=== PATIENT | female | born 1985 | race Asian ===

== ENCOUNTER 2017-03-31 21:11 | Observation (INO) | payer OTHER, MEDICAID ==
[2017-03-31 21:47] LABS: APPEARANCE,URINE CLEAR; BILIRUBIN,URINE NEGATIVE (NEGATIVE); GLUCOSE, URINE NEGATIVE (NEGATIVE); KETONES,URINE 80 mg/dL (NEGATIVE); LEUKOCYTE ESTERASE,URINE TRACE (NEGATIVE); NITRITE,URINE NEGATIVE (NEGATIVE); PROTEIN,URINE NEGATIVE (NEGATIVE); URINE SPECIFIC GRAVITY 1.009; UROBILINOGEN,URINE NEGATIVE mg/dL (<2.0)
[2017-03-31 22:00] LABS: URINE BARBITURATES SCREEN NEGATIVE; URINE METHADONE SCREEN NEGATIVE; URINE OPIATES LOW NEGATIVE; URINE PHENCYCLIDINE SCREEN NEGATIVE
[2017-03-31] MEDS ORDERED: TERBUTALINE SULFATE INJ/PF 1 MG/1 ML SDV SUBCUT ONE (23:20)
[2017-03-31] MEDS ORDERED: TERBUTALINE SULFATE INJ/PF 1 MG/1 ML SDV ONE (23:26)
[2017-03-31] MEDS: RINGERS SOLUTION,LACTATED 1,000 ML IV PRN (23:53)
--- NOTE | 2017-04-01 00:35 | RADIOLOGY REPORT (SQ) ---
EXAM DESCRIPTION: U/S OB LIMITED COMPLETED DATE/TIME: 03/31/2017 10:50 pm REASON FOR STUDY: Cervical lngth pres to R/O labor COMPARISON: None. TECHNIQUE: Limited transvaginal and transabdominal grayscale ultrasound for evaluation of specific r equested obstetrical parameters. LIMITATIONS: None. FINDINGS: CERVICAL LENGTH: 3.3 cm Closed. FHR: 136 beats per minute. PRESENTATION: Cephalic. OTHER: No other significant findings. IMPRESSION: LIMITED OBSTETRICAL ULTRASOUND WITH MEASURED PARAMETERS DELINEATED ABOVE. Trimester of : Third trimester - 28 weeks to delivery. TECHNICAL DOCUMENTATION: JOB ID: [id number] [employer]- All Rights Reserved
[2017-04-01] MEDS: RINGERS SOLUTION,LACTATED 1,000 ML IV PRN (01:16)
--- NOTE | 2017-04-01 06:45 | L&D Progress Notes ---
PROGRESS NOTES Datetime Report Generated by CPN: 04/01/2017 06:45 PROGRESS NOTE Impression Other: ctx Procedures: Sterile Vag Exam Plan: Continue Present Management Informed Consent Obtained: Vaginal Delivery; Risks, Benefits and Alternatives Discussed Vital Signs : Reviewed Comment: Pt being observed for ctx. Normal cervical length. Cvx ft to 1/50/-2 at 0641. fFN negative. However pt given 4x dose of terb by RN at approx midnight. Ctx decreased for a time. Now ctx q 4 minutes (were every one to 2). Norbert continue to monitor and if quiet down and non further cervical change then discharge to home. VAGINAL EXAM Dilatation: ft Effacement: 50 Station: -2 Contractions: q2 MEMBRANES Membranes: Intact FETUS A FHR - Baseline: 125 Monitoring: External US Variability: Moderate 6-25bpm Accelerations: 10X10 Decelerations: None FHR Category: Category II Presentation: Vertex SIGNATURE SIGNATURE: [id number] Signature: with User ID: [email or web address]
--- NOTE | 2017-04-12 10:45 | Admission Physical ---
Datetime Report Generated by CPN: 04/12/2017 10:44 CURRENT ADMISSION Chief Complaint: Uterine Contractions Indication for Induction: Not Applicable Admit Plan: Observation/Evaluation ALLERGIES Medication Allergies: No Medication Allergies: No Known Allergies (03/31/2017) Medication Allergies: No Known Allergies (10/09/2015) Latex: No Latex Allergies Food Allergies: N/A Environmental Allergies: N/A OBSTETRICAL HISTORY EDC: 05/28/2017 00:00 : 3 Para: 2 Term: 2 : 0 SAB: 0 IAB: 0 Livin Gestational Diabetes: Yes Rh Sensitization: No Incompetent Cervix: No BLANCHE: No Infertility: No ART Treatment: No Uterine Anomaly: No IUGR: No Hx Previous C/S: No Macrosomia: No Hx Loss/Stillborn: No PIH: No Hx : No Placenta Previa/Abruption: No Depression/PP Depression: No PTL/PROM: No Post Hemorrhage: No Current Procedures: Ultrasound Obstetrical History Comments: G1 2009, , Boy at 38 weeks, partially developed arms G2 - 2013, , Girl at 36 weeks G3 - Current SEE RECORDS Alcohol: No Marijuana : No Cocaine: No Other Illicit Drugs: No Cigarettes: Never Smoker. [id number] MEDICAL HISTORY Diabetes: Yes Diabetes Type: Gestational Diabetes Blood Transfusion: No Pulmonary Disease (Asthma, TB): No Breast Disease: No Hypertension: No Utility Operator Surgery: No Heart Disease: No Hosp/Surgery: No Autoimmune Disorder: No Anesthetic Complications: No Kidney Disease: Yes Abnormal Pap Smear: Yes Neuro/Epilepsy: No Psychiatric Disorders: No Other Medical Diseases: No Hepatitis/Liver Disease: No Significant Family History: No Varicosities/Phlebitis: No Trauma/Violence : No Thyroid Dysfunction: No Medical History Comments: UTI, abnormal pap INFECTIOUS HISTORY Gonorrhea: No Genital Herpes: No Chlamydia: No Tuberculosis: No Syphilis: No Hepatitis: No HIV/AIDS Exposure: No Rash or Viral Illness: No HPV: No PHYSICAL EXAM General: Normal HEENT: Normal Neurologic: Normal Thyroid: Normal Heart: Normal Lungs: Normal Breast: Deferred Back: Normal Abdomen: Normal Genitourinary Exam: Normal Extremities: Normal DTRs: Normal Pelvic Type: Adequate Vital Signs: Reviewed VAGINAL EXAM Dilatation: ft Effacement: 50 Station: -2 Contraction Comments: q2 MEMBRANES Membranes: Intact FETUS A Monitoring: External US FHR- Baseline: 125 Variability: Moderate 6-25bpm Accelerations: 15X15 Decelerations: None FHR Category: Category I Presentation: Vertex Admit Comment: 32yo at 31+6ega presents for uterine ctx at home. She has had 2 term deliveries in the past. SHe is [place] of [facility] and HTLV has not been drawn yet - drawn on admission. She was nallely q 2 minutes despite positioning. Cervical length obtained and greater than 3cm perpreliminary report. However, pt still nallely despite positioning and IVF. Terb ordered and RN accidentally administered 1mg of Terb SQ instead of 0.25mg. No maternal or tachy noted at this point but due to med error will prolonged monitor pt. c/b newly dx A1GDM - Accucheck 121 on admission. fFN still pending at admission - finally returned as negative. Pt still feeling ctx but now after terb ctx q 6 minutes. No BMZ due to negative fFN and long cervix. Pt first child born in [facility] - no arms due to Amniotic Band Syndrome. 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 Will observe patient due to med error with too much terb given and pt ctx q 2 minutes prior to terb. PLANS FOR LABOR AND DELIVERY Labor and Delivery: None Pain Management: Natural Feeding Preference: Both Benefit of Breast Feed Discussed: Yes Circumcision: Yes INFORMED CONSENT Informed Consent Obtained: Vaginal Delivery; Risks, Benefits and Alternatives Discussed Signature: with User ID: [email or web address]
== END 2017-04-01 12:59 | disposition home or self-care (01) ==
LOC: LC 21:11 → LR 04-01 00:06
PROVIDERS: ADMIT Student in an Organized Health Care Education/Training Program; ATTEND Student in an Organized Health Care Education/Training Program
PROC: 4A0HXCZ Measurement of Products of Conception, Cardiac Rate, External Approach (ICD-10-PCS; principal; 2017-04-01)
DX: O60.03 Preterm labor without delivery, third trimester (principal); O9A.213 Injury, poisoning and certain other consequences of external causes complicating pregnancy, third trimester; T44.5X1A Poisoning by predominantly beta-adrenoreceptor agonists, accidental (unintentional), initial encounter; Y92.239 Unspecified place in hospital as the place of occurrence of the external cause; O24.419 Gestational diabetes mellitus in pregnancy, unspecified control; Z3A.31 31 weeks gestation of pregnancy; Z87.898 Personal history of other specified conditions
CPT/HCPCS: 59025; 94760; 36415; 82962; 81001; 80307; 86790; 82731; 76815; G0378; G0379; J3105

== ENCOUNTER 2017-04-14 15:02 | Outpatient (CLI) | payer OTHER, MEDICAID ==
[2017-04-14 15:53] LABS: APPEARANCE,URINE SLIGHTLY-CLOUDY; BILIRUBIN,URINE NEGATIVE (NEGATIVE); GLUCOSE, URINE NEGATIVE (NEGATIVE); KETONES,URINE NEGATIVE (NEGATIVE); LEUKOCYTE ESTERASE,URINE LARGE (NEGATIVE); NITRITE,URINE NEGATIVE (NEGATIVE); PROTEIN,URINE NEGATIVE (NEGATIVE); URINE SPECIFIC GRAVITY 1.006; UROBILINOGEN,URINE NEGATIVE mg/dL (<2.0)
--- NOTE | 2017-04-14 16:04 | Non Stress Test Report ---
Non Stress Test Datetime Report Generated by CPN: 04/14/2017 16:04 DEMOGRAPHIC EGA NST: 33.5 EGA NST: 31.6 INDICATION Indication for Study: Diabetes Mellitus; Ordered by Provider Indication for Study: Ordered by Provider VITAL SIGNS Temperature - NST: 99.0 RESP - NST: 16 MONITORING Monitor Explained: Monitor Explained; Test Explained; Patient Verbalized Understanding Monitor Explained: Monitor Explained; Test Explained; Patient Verbalized Understanding Time on Monitor: 04/14/2017 15:21 Time on Monitor: 04/01/2017 11:37 Time off Monitor: 04/14/2017 15:45 Time off Monitor: 04/01/2017 12:00 NST Duration: 24 NST Duration: 23 NST INTERVENTIONS NST Interventions: PO Hydration NST Interventions: IV Fluids Physician Notified NST: Sparks BABY A: [id number] BABY A Movement : Present Movement : Present Contraction Frequency : UTD Contraction Frequency : rare FHR Baseline : 150 FHR Baseline : 135 Accelerations : 15X15 Accelerations : 15X15 Decelerations : None Decelerations : None Variability : Moderate 6-25bpm Variability : Moderate 6-25bpm NST Review: Meets Criteria for Reactive NST NST Review: Meets Criteria for Reactive NST NST Review and Verified By : GUSTAVO VallecilloT Results: Reactive NST Results: Reactive NST REPORT Report Trigger: Send Report
[2017-04-14 16:11] LABS: URINE BARBITURATES SCREEN NEGATIVE; URINE METHADONE SCREEN NEGATIVE; URINE OPIATES LOW NEGATIVE; URINE PHENCYCLIDINE SCREEN NEGATIVE
== END 2017-04-14 15:50 | disposition home or self-care (01) ==
LOC: LC 15:02
PROVIDERS: ATTEND Obstetrics & Gynecology
PROC: 4A1HXCZ Monitoring of Products of Conception, Cardiac Rate, External Approach (ICD-10-PCS; principal; 2017-04-14)
DX: O24.419 Gestational diabetes mellitus in pregnancy, unspecified control (principal); Z3A.33 33 weeks gestation of pregnancy
CPT/HCPCS: 59025; 80307; 81001

== ENCOUNTER 2017-05-06 11:13 | Outpatient (CLI) | payer OTHER, MEDICAID | END 2017-05-06 12:00 | disposition home or self-care (01) | LOC: LC 11:13 | PROVIDERS: ATTEND Student in an Organized Health Care Education/Training Program | PROC: 4A1HXCZ Monitoring of Products of Conception, Cardiac Rate, External Approach (ICD-10-PCS; principal; 2017-05-06) | DX: O24.419 Gestational diabetes mellitus in pregnancy, unspecified control (principal); Z3A.36 36 weeks gestation of pregnancy | CPT/HCPCS: 59025 ==

== ENCOUNTER 2017-05-18 06:40 | Inpatient (IN) | payer OTHER, MEDICAID ==
[2017-05-18] MEDS ORDERED: RINGERS SOLUTION,LACTATED 300 ML IV ONE (07:00)
[2017-05-18] MEDS ORDERED: OXYTOCIN/NORMAL SALINE 20 UNIT/1,000 ML RTUINJ IV PRN ×2 (07:00→10:47)
[2017-05-18] MEDS ORDERED: RINGERS SOLUTION,LACTATED 1,000 ML IV PRN (07:00)
[2017-05-18] MEDS ORDERED: OXYTOCIN/NORMAL SALINE 20 UNIT/1,000 ML RTUINJ ONE (07:21)
[2017-05-18 07:52] LABS: APPEARANCE,URINE CLOUDY; BILIRUBIN,URINE NEGATIVE (NEGATIVE); GLUCOSE, URINE NEGATIVE (NEGATIVE); KETONES,URINE NEGATIVE (NEGATIVE); LEUKOCYTE ESTERASE,URINE SMALL (NEGATIVE); NITRITE,URINE NEGATIVE (NEGATIVE); PROTEIN,URINE NEGATIVE (NEGATIVE); URINE SPECIFIC GRAVITY 1.021; UROBILINOGEN,URINE NEGATIVE mg/dL (<2.0)
[2017-05-18 07:56] LABS: ABSOLUTE EOSINOPHILS # (AUTO) 0.3 10^3/uL (0.0-0.6); ABSOLUTE MONOCYTES (AUTO) 0.5 10^3/uL (0.1-1.4); ABSOLUTE NEUT (AUTO) 6.5 10^3/uL (1.7-8.2); BASOPHILS % (AUTO) 0.4 % (0-2); EOSINOPHILS % (AUTO) 2.8 % (0-6); HEMATOCRIT 34.4 % (36.0-47.0); HEMOGLOBIN 11.5 g/dL (12.0-15.5); HGB HCT DIFFERENCE 0.1; LYMPHOCYTES % (AUTO) 21.5 % (13-45); MEAN CORPUSCULAR HEMOGLOBIN 30.4 pg (27.0-33.4); MEAN CORPUSCULAR HGB CONC 33.2 g/dL (32.0-36.0); MEAN CORPUSCULAR VOLUME 91 fl (80-97); MONOCYTES % (AUTO) 5.8 % (3-13); RED BLOOD COUNT 3.77 10^6/uL (3.72-5.28); RED CELL DISTRIBUTION WIDTH 13.8 % (11.5-14.0); SEGMENTED NEUTROPHILS % (AUTO) 69.5 % (42-78); WHITE BLOOD COUNT 9.3 10^3/uL (4.0-10.5)
[2017-05-18 08:05] LABS: ALANINE AMINOTRANSFERASE 26 U/L (9-52); ALBUMIN 3.2 g/dL (3.5-5.0); ALKALINE PHOSPHATASE 145 U/L (38-126); ANION GAP 11 (5-19); ASPARTATE AMINO TRANSFERASE 12 U/L (14-36); BILIRUBIN,DIRECT 0.3 mg/dL (0.0-0.4); BILIRUBIN,TOTAL 0.3 mg/dL (0.2-1.3); BLOOD UREA NITROGEN 10 mg/dL (7-20); CALCIUM 8.8 mg/dL (8.4-10.2); CARBON DIOXIDE 17 mmol/L (22-30); CHLORIDE 108 mmol/L (98-107); CREATININE RESULT 0.57 mg/dL (0.52-1.25); GLUCOSE 97 mg/dL (75-110); POTASSIUM 4.1 mmol/L (3.6-5.0); SODIUM 136.3 mmol/L (137-145)
--- NOTE | 2017-05-18 09:02 | L&D Progress Notes ---
PROGRESS NOTES Datetime Report Generated by CPN: 05/18/2017 09:02 PROGRESS NOTE Impression: Reassuring Heart Rate Procedures: Artificial ROM; Sterile Vag Exam Plan: Continue Present Management; Induction Informed Consent Obtained: Vaginal Delivery Vital Signs : Reviewed; Within Normal Limits Comment: comfortable, VE = 3/80/vtx/0. arom clear fluid, Cat 1 strip. irreg uc's. desires epidural and circumcision MEMBRANES Membranes: Ruptured Amniotic Fluid Color: Clear FETUS A FHR - Baseline: 130 Accelerations: 15X15 Decelerations: None FHR Category: Category I SIGNATURE SIGNATURE: [id number];[id number] SIGNATURE: [id number];[id number] Assignment: Isaiah Sparks DO Signature: with User ID: [email or web address] : with User ID: [email or web address]
[2017-05-18] MEDS ORDERED: MISOPROSTOL 0.2 MG TABLET ONE (10:10)
[2017-05-18] MEDS ORDERED: LIDOCAINE 1% INJ-PF (10 MG/ML) 30 ML SDV ONE (10:10)
[2017-05-18] MEDS ORDERED: DIBUCAINE 1% OINTMENT 28 GM TP PRN (10:47)
[2017-05-18] MEDS ORDERED: BENZOCAINE/MENTHOL AEROSOL SPRAY 56 ML TOP PRN (10:47)
[2017-05-18] MEDS ORDERED: ACETAMINOPHEN 650 MG SUPP.RECT PR PRN (10:47)
[2017-05-18] MEDS ORDERED: NA PHOS,M-B/NA PHOS,DI-BA (ADULT) 133 ML ENEMA PR PRN (10:47)
[2017-05-18] MEDS ORDERED: MAGNESIUM HYDROXIDE SUSP 30 ML UDCUP PO PRN (10:47)
[2017-05-18] MEDS ORDERED: DIPHENHYDRAMINE HCL 25 MG CAPSULE PO PRN (10:47)
[2017-05-18] MEDS ORDERED: ACETAMINOPHEN WITH CODEINE #3 TABLET PO PRN ×2 (10:47)
[2017-05-18] MEDS ORDERED: PROMETHAZINE HCL 25 MG TABLET PO PRN (10:47)
[2017-05-18] MEDS ORDERED: GLYCERIN/WITCH HAZEL LEAF 1 EACH MED..PAD TP PRN (10:47)
[2017-05-18] MEDS ORDERED: PSEUDOEPHEDRINE HCL 30 MG TABLET PO PRN (10:47)
[2017-05-18] MEDS ORDERED: MEASLES,MUMPS&RUBELLA VACC/PF 0.5 ML VIAL SUBCUT PRN (10:47)
[2017-05-18] MEDS ORDERED: PROMETHAZINE HCL INJ 25 MG/1 ML VIAL IV PRN (10:47)
[2017-05-18] MEDS ORDERED: MISOPROSTOL 0.2 MG TABLET PR PRN (10:47)
[2017-05-18] MEDS ORDERED: DIPH/PERTUSS(ACELL)/TETANUS VAC/PF 0.5 ML SYR (>=10YO) IM PRN (10:47)
[2017-05-18] MEDS ORDERED: PROMETHAZINE HCL 25 MG SUPP.RECT PR PRN (10:47)
--- NOTE | 2017-05-18 11:56 | Delivery Summary ---
Del Sum A-C Datetime Report Generated by CPN: 05/18/2017 11:55 DELIVERY PERSONNEL DELIVERY PERSONNEL: [id number] Delivery Doctor:: Aidee Islas CNM Nurse Boiler Tenders Supervisor Certified:: Aidee Islas CNM Labor and Delivery Nurse:: Melissa Trujillo RNtelevision news photographer Nurse:: JOSÉ Horn Additional Personnel: : Ro Duran RN MATERNAL INFORMATION Delivery Anesthesia: None Medications After Delivery: Pitocin Drip 20 Units/1000ml NSS; Cytotec 600mcg Per Rectum/Vagina Estimated Blood Loss (ml): 200 Maternal Complications: Precipitous Labor (<3hrs) Provider Comments: Pt progressed quickly, viable male from OA to RAYMOND over intact perineum, NC x 1, easily reduced, spont delivery of grossly nl intact placenta, 3 vc, ebl = 200 cc, FFFM, massage, Pitocin and cytotec 600 mcg via rectum, family at Plans to breastfeed (Annotations: Data stored by CPN on behalf of user) LABOR SUMMARY EDC: 05/28/2017 00:00 No. Babies in Womb: 1 Labor Anesthesia: None LABOR INFORMATION Reason for Induction: Other Reason for Induction- Other: macrosomia Onset of Labor: 05/18/2017 09:30 Complete Dilatation: 05/18/2017 10:17 Oxytocin: Induction Group B Beta Strep: unknown MEMBRANES Membranes Rupture Method: Artificial Rupture of Membranes: 05/18/2017 08:57 Length of Rupture (hr): 1.43 Amniotic Fluid Color: Clear Amniotic Fluid Amount: Small Amniotic Fluid Odor: Normal STAGES OF LABOR Stage 1 hr: 0 Stage 1 min: 47 Stage 2 hr: 0 Stage 2 min: 6 Stage 3 hr: 0 Stage 3 min: 9 Total Time in Labor hr: 1 Total Time in Labor min: 2 VAGINAL DELIVERY Episiotomy: None Laceration #1: None Laceration Extension #1: N/A Laceration Repair: Not Applicable BABY A INFORMATION Infant Delivery Date/Time: 05/18/2017 10:23 Method of Delivery: Vaginal Born in Route : No : N/A Forceps: N/A Vacuum Extraction: N/A Shoulder Dystocia : No PRESENTATION/POSITION BABY A Presentation: Cephalic Cephalic Presentation: Vertex Vertex Position: Left Occipital Anterior Breech Presentation: N/A PLACENTA INFORMATION BABY A Placenta Delivery Time : 05/18/2017 10:32 Placenta Method of Delivery: Spontaneous Placenta Status: Delivered SCORES BABY A Heart Rate 1 min: >100 bpm Resp Effort 1 min: Good Cry Reflex Irritability 1 min: Cough or Sneeze or Pulls Away Muscle Tone 1 min: Active Motion Color 1 min: Body [place], Extremities Blue Resuscitation Effort 1 min: Tactile Stimulation SCORE 1 MIN: 9 Heart Rate 5 min: >100 bpm Resp Effort 5 min: Good Cry Reflex Irritability 5 min: Cough or Sneeze or Pulls Away Muscle Tone 5 min: Active Motion Color 5 min: Body [place], Extremities Blue Resuscitation Effort 5 min: Tactile Stimulation SCORE 5 MIN: 9 INFANT INFORMATION BABY A Gestational Age at Delivery: 38.4 Gestational Status: Early Term- 37- 38.6 Weeks Outcome : Liveborn Condition : Stable Infant Sex: Male IDENTIFICATION BABY A Verification Date/Time: 05/18/2017 11:15 ID Band Number: [id number] Mother's Name Verified: Yes RN Verifying : Scotty Viramontes CNA Additional Verifying Personnel: Lamar Powellbeth RNC WEIGHT/LENGTH BABY A Infant Birthweight (gm): 3700 Weight (lb): 8 Weight (oz): 3 Infant Length (in): 22.00 Infant Length (cm): 55.88 CORD INFORMATION BABY A No. Cord Vessels: 3 Nuchal Cord : Around Neck x1, Loose Cord Blood Taken: Yes-For Storage (Mom's Blood type +) Suction: None ASSESSMENT BABY A Complications: None Physical Findings at Delivery: Within Normal Limits Respirations: Appears Normal Skin to Skin: Yes Skin to Skin Time (min): 60 Donation Specialist/ALS Called : No Infant Care By: Lamar Cherry RNC Transferred To: Remains with Mother
--- NOTE | 2017-05-18 12:55 | Admission Physical ---
Datetime Report Generated by CPN: 05/18/2017 12:55 CURRENT ADMISSION Chief Complaint: Uterine Contractions Indication for Induction: Not Applicable Indication for Induction: , Intrauterine ; Observation/Evaluation Admit Plan: Observation/Evaluation ALLERGIES Medication Allergies: No Medication Allergies: No Known Allergies (05/18/2017) Medication Allergies: No Known Allergies (04/14/2017) Medication Allergies: No Known Allergies (03/31/2017) Medication Allergies: No Known Allergies (10/09/2015) Latex: No Latex Allergies Food Allergies: N/A Environmental Allergies: N/A OBSTETRICAL HISTORY EDC: 05/28/2017 00:00 : 3 Para: 2 Term: 2 : 0 SAB: 0 IAB: 0 Ectopic: 0 Livin Cesareans: 0 VBACs: 0 Multiple Births: 0 Gestational Diabetes: Yes Rh Sensitization: No Incompetent Cervix: No BLANCHE: No Infertility: No ART Treatment: No Uterine Anomaly: No IUGR: No Hx Previous C/S: No Macrosomia: No Hx Loss/Stillborn: No PIH: No Hx : No Placenta Previa/Abruption: No Depression/PP Depression: No PTL/PROM: No Post Hemorrhage: No Current Procedures: Ultrasound Obstetrical History Comments: G1 - 2009, , Boy at 38 weeks, partially developed arms G2 - 2013, , Girl at 36 weeks G3 - Current SEE RECORDS Alcohol: No Marijuana : No Cocaine: No Other Illicit Drugs: No Cigarettes: Never Smoker. [id number] MEDICAL HISTORY Diabetes: Yes Diabetes Type: Gestational Diabetes Blood Transfusion: No Pulmonary Disease (Asthma, TB): No Breast Disease: No Hypertension: No Cat Scan Tech Surgery: No Heart Disease: No Hosp/Surgery: No Autoimmune Disorder: No Anesthetic Complications: No Kidney Disease: Yes Abnormal Pap Smear: Yes Neuro/Epilepsy: No Psychiatric Disorders: No Other Medical Diseases: No Hepatitis/Liver Disease: No Significant Family History: No Varicosities/Phlebitis: No Trauma/Violence : No Thyroid Dysfunction: No Medical History Comments: UTI, abnormal pap INFECTIOUS HISTORY Gonorrhea: No Genital Herpes: No Chlamydia: No Tuberculosis: No Syphilis: No Hepatitis: No HIV/AIDS Exposure: No Rash or Viral Illness: No HPV: No PHYSICAL EXAM General: Normal HEENT: Normal Neurologic: Normal Thyroid: Normal Heart: Normal Lungs: Normal Breast: Deferred Back: Normal Abdomen: Normal Genitourinary Exam: Normal Extremities: Normal DTRs: Normal Pelvic Type: Adequate Vital Signs: Reviewed VAGINAL EXAM Dilatation: ft Effacement: 50 Station: -2 Contraction Comments: q2 MEMBRANES Membranes: Ruptured Membranes: Intact Amniotic Fluid Color: Clear FETUS A EGA: 31.6 Monitoring: External US FHR- Baseline: 125 Variability: Moderate 6-25bpm Accelerations: 15X15 Decelerations: None FHR Category: Category I Presentation: Vertex Admit Comment: 32yo at 31+6ega presents for uterine ctx at home. She has had 2 term deliveries in the past. [place] [facility] and HTLV has not been drawn yet - drawn on admission. She was nallely q 2 minutes despite positioning. Cervical length obtained and greater than 3cm perpreliminary report. However, pt still nallely despite positioning and IVF. Terb ordered and RN accidentally administered 1mg of Terb SQ instead of 0.25mg. No maternal or tachy noted at this point but due to med error will prolonged monitor pt. c/b newly dx A1GDM - Accucheck 121 on admission. fFN still pending at admission - finally returned as negative. Pt still feeling ctx but now after terb ctx q 6 minutes. No BMZ due to negative fFN and long cervix. Pt first child born in [facility] - no arms due to Amniotic Band Syndrome. 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 Will observe patient due to med error with too much terb given and pt ctx q 2 minutes prior to terb. PLANS FOR LABOR AND DELIVERY Labor and Delivery: None Pain Management: Natural Feeding Preference: Both Benefit of Breast Feed Discussed: Yes Circumcision: Yes INFORMED CONSENT Informed Consent Obtained: Vaginal Delivery Informed Consent Obtained: Vaginal Delivery; Risks, Benefits and Alternatives Discussed Signature: with User ID: [email or web address]
[2017-05-18] MEDS: IBUPROFEN 800 MG TABLET PO SCH ×2 (14:02→21:13)
[2017-05-18] MEDS: DOCUSATE SODIUM 100 MG CAPSULE PO SCH (17:31)
[2017-05-18] MEDS: FERROUS SULFATE 325 MG TABLET PO SCH (17:31)
[2017-05-18] MEDS: FAMOTIDINE 20 MG TABLET PO SCH (21:13)
[2017-05-19] MEDS: IBUPROFEN 800 MG TABLET PO SCH ×3 (05:00→22:14)
[2017-05-19 07:13] LABS: HEMATOCRIT 33.9 % (36.0-47.0); HEMOGLOBIN 11.6 g/dL (12.0-15.5); HGB HCT DIFFERENCE 0.9; MEAN CORPUSCULAR HEMOGLOBIN 31.2 pg (27.0-33.4); MEAN CORPUSCULAR HGB CONC 34.1 g/dL (32.0-36.0); MEAN CORPUSCULAR VOLUME 92 fl (80-97); RED BLOOD COUNT 3.71 10^6/uL (3.72-5.28); RED CELL DISTRIBUTION WIDTH 14.2 % (11.5-14.0); WHITE BLOOD COUNT 11.3 10^3/uL (4.0-10.5)
[2017-05-19] MEDS: PRENATAL VITAMIN W-O CA NO5/FE FUMARATE/FA CAPSULE PO SCH (10:35)
[2017-05-19] MEDS: FERROUS SULFATE 325 MG TABLET PO SCH ×2 (10:36→18:14)
[2017-05-19] MEDS: DOCUSATE SODIUM 100 MG CAPSULE PO SCH ×2 (10:36→18:15)
[2017-05-19] MEDS: FAMOTIDINE 20 MG TABLET PO SCH ×2 (10:36→22:14)
[2017-05-19] MEDS: SENNOSIDES/DOCUSATE 8.6-50 MG 1 EACH TABLET PO SCH (10:36)
--- NOTE | 2017-05-19 11:21 | PDOC PROGRESS REPORT ---
Subjective-OB Subjective: Post Delivery Day:1 32 year old G3 now P3 s/p ppd1. Voiding and ambulating without difficulty. Denies any needs at this time Physical Exam (OB) Vital Signs: Temp Pulse Resp BP Pulse Ox 98.3 F 72 16 108/70 96 05/19/17 08:06 05/19/17 08:06 05/19/17 08:06 05/19/17 08:06 05/19/17 08:06 Intake & Output 05/18/17 05/19/17 05/20/17 06:59 06:59 06:59 Intake Total 500 Balance 500 Weight 86 kg - General General Appearance: Appears well In distress: None - PIH/Pre-Eclampsia DTR's: 2 + Clonus: Negative Headache: Absent Epigastric Pain: No Visual Changes: No - Episiotomy/Laceration Site Condition: N/A - Lochia Lochia Amount: Scant < 10 ml Lochia Color: Rubra/Red - Abdomen Description: Soft Hernia Present: No Fundal Description: Firm, Midline Fundal Height: u/u - u/2 - Respiratory Respiratory Status: No respiratory distress - Extremities Upper extremity: Normal inspection Lower extremities: Normal inspection - Neurological Cognition: Normal Orientation: AAOx4 - Psychological Associated symptoms: Normal affect, Normal mood Objective-Diagnostic Laboratory: 05/19/17 06:50 05/18/17 07:26 05/19/17 06:50 WBC 11.3 H RBC 3.71 L Hgb 11.6 L Hct 33.9 L MCV 92 MCH 31.2 MCHC 34.1 RDW 14.2 H Plt Count 241 Assessment and Plan(PN) - Assessment and Plan (1) Gestational diabetes mellitus Qualifiers: Gestational diabetes mellitus control: unspecified Trimester: unspecified trimester Qualified Code(s): O24.419 - Gestational diabetes mellitus in , unspecified control Is this a current diagnosis for this admission?: Yes Plan: routine pp care, recheck glucose at pp visit (2) Vaginal delivery Is this a current diagnosis for this admission?: Yes Plan: routine pp care - Time Spent with Patient Time with patient: 15-25 minutes Medications reviewed and adjusted accordingly: Yes - Disposition Anticipated Discharge: Home Within: within 24 hours
[2017-05-19] MEDS ORDERED: INFLUENZA ADLT QUAD (36MOS+) 2017-18 VAC 0.5 ML SYR IM PRN (14:20)
[2017-05-20] MEDS: IBUPROFEN 800 MG TABLET PO SCH ×2 (05:45→13:23)
--- NOTE | 2017-05-20 09:32 | PDOC PROGRESS REPORT ---
Subjective-OB Subjective: Post Delivery Day: 32 year old. Denies any needs at this time Doing well, ready to go home, voiding, eating well, breast/bottle feeding, feeling good Physical Exam (OB) Vital Signs: Temp Pulse Resp BP Pulse Ox 97.6 F 71 16 115/75 100 05/20/17 07:42 05/20/17 07:42 05/20/17 07:42 05/20/17 07:42 05/20/17 07:42 Intake & Output 05/19/17 05/20/17 05/21/17 06:59 06:59 06:59 Intake Total 500 Output Total 1 Balance 500 -1 Weight 86 kg - PIH/Pre-Eclampsia DTR's: 2 + Clonus: Negative Headache: Absent Epigastric Pain: No Visual Changes: No - Lochia Lochia Amount: Scant < 10 ml Lochia Color: Rubra/Red - Abdomen Description: Soft, Flat Hernia Present: No Fundal Description: Firm, Midline Fundal Height: 1/u - 2/u Objective-Diagnostic Laboratory: 05/19/17 06:50 05/18/17 07:26 Assessment and Plan(PN) - Assessment and Plan (1) Gestational diabetes mellitus Qualifiers: Gestational diabetes mellitus control: diet-controlled Trimester: unspecified trimester Qualified Code(s): O24.410 - Gestational diabetes mellitus in , diet controlled Is this a current diagnosis for this admission?: Yes (2) Vaginal delivery Is this a current diagnosis for this admission?: Yes - Time Spent with Patient Time with patient: Less than 15 minutes Medications reviewed and adjusted accordingly: Yes - Disposition Anticipated Discharge: Home Within: Other - home today
--- NOTE | 2017-05-20 09:35 | PDOC DISCHARGE SUMMARY ---
Final Diagnosis Discharge Date: 05/20/17 - Final Diagnosis (1) Gestational diabetes mellitus Is this a current diagnosis for this admission?: Yes (2) Vaginal delivery Is this a current diagnosis for this admission?: Yes Discharge Data - Discharge Medication Home Medications: Vits96/Iron Fum/Folic [ Tablet] 1 tab PO DAILY 03/25/14 Gestational Age: 38.4 Reason(s) for Admission: Induction of Labor, Gestional Diabetes Procedures: NST, Ultrasound - [place] Data Baby 1 Male at 1 minute: 9 at 5 minutes: 9 Weight: 3.714 kg Home with Mother: Yes Complications: No - Diagnosis Test Laboratory: Temp Pulse Resp BP Pulse Ox 97.6 F 71 16 115/75 100 05/20/17 07:42 05/20/17 07:42 05/20/17 07:42 05/20/17 07:42 05/20/17 07:42 05/18/17 05/18/17 05/19/17 06:50 07:26 06:50 RBC 3.77 3.71 L Hgb 11.5 L 11.6 L Hct 34.4 L 33.9 L Urine Opiates Screen Cancelled - Discharge information/Instructions Discharge Activity: Activity As Tolerated, No Lifting Over 10 Pounds, No Lifting /Push/Pulling, Pelvic Rest Discharge Diet: As Tolerated, Regular Disposition: HOME, SELF-CARE Follow up with: [facility] in: 4, Weeks
[2017-05-20] MEDS: PRENATAL VITAMIN W-O CA NO5/FE FUMARATE/FA CAPSULE PO SCH (09:44)
[2017-05-20] MEDS: FERROUS SULFATE 325 MG TABLET PO SCH (09:44)
[2017-05-20] MEDS: DOCUSATE SODIUM 100 MG CAPSULE PO SCH (09:44)
[2017-05-20] MEDS: SENNOSIDES/DOCUSATE 8.6-50 MG 1 EACH TABLET PO SCH (09:45)
[2017-05-20] MEDS: FAMOTIDINE 20 MG TABLET PO SCH (09:45)
[2017-05-20 11:20] VITALS: BP 113/65
== END 2017-05-20 14:18 | disposition home or self-care (01) | DRG 775 ==
LOC: LR 06:40 → 2S 12:45
PROVIDERS: ADMIT Obstetrics & Gynecology; ATTEND Obstetrics & Gynecology
PROC: 10E0XZZ Delivery of Products of Conception, External Approach (ICD-10-PCS; principal; 2017-05-18)
PROC: 10907ZC Drainage of Amniotic Fluid, Therapeutic from Products of Conception, Via Natural or Artificial Opening (ICD-10-PCS; 2017-05-18)
PROC: 3E033VJ Introduction of Other Hormone into Peripheral Vein, Percutaneous Approach (ICD-10-PCS; 2017-05-18)
PROC: 4A1HXCZ Monitoring of Products of Conception, Cardiac Rate, External Approach (ICD-10-PCS; 2017-05-18)
DX: O24.410 Gestational diabetes mellitus in pregnancy, diet controlled (principal); O62.3 Precipitate labor; O36.63X0 Maternal care for excessive fetal growth, third trimester, not applicable or unspecified; O69.81X0 Labor and delivery complicated by cord around neck, without compression, not applicable or unspecified; Z3A.38 38 weeks gestation of pregnancy; Z37.0 Single live birth
CPT/HCPCS: 36415; 80053; 81005; 82962; 85025; 85027; 86592; 86850; 86900; 86901; J2590; J3490

== ENCOUNTER → 2020-07-08 | Outpatient (CLI) | payer MEDICAID | LOC: OD 14:45 | PROVIDERS: ATTEND Family Medicine | DX: R53.83 Other fatigue (principal); Z83.49 Family history of other endocrine, nutritional and metabolic diseases | CPT/HCPCS: 36415; 84443 ==